=== PATIENT | female | born 1970 | race Caucasian/White ===

== ENCOUNTER → 2017-08-15 | Outpatient (CLI) | payer OTHER ==
[~2017-08-15] MED LIST: CETI10TA24 PO; CITA20TA9 PO; MULT-224 PO
== END ==
LOC: CFH 14:38
PROVIDERS: ATTEND Family Medicine
DX: N60.02 Solitary cyst of left breast (principal); R92.2 Inconclusive mammogram
CPT/HCPCS: 76642; 77066

== ENCOUNTER 2019-02-26 09:31 | Outpatient (CLI) | payer OTHER ==
[~2019-02-26 09:31] MED LIST changes: -MULT-224 PO; +MULT-642 PO
== END 2019-02-26 23:59 | disposition home or self-care (01) ==
LOC: CARD 09:31
PROVIDERS: ATTEND Family Medicine
DX: I49.3 Ventricular premature depolarization (principal)
CPT/HCPCS: 93225; 93226

== ENCOUNTER 2020-04-21 10:09 | Outpatient (CLI) | payer OTHER ==
[~2020-04-21 10:09] MED LIST changes: -CETI10TA24 PO; +CETI10TA76 PO
== END 2020-04-21 23:59 | disposition home or self-care (01) ==
LOC: CFH 10:09
PROVIDERS: ATTEND Family Medicine
DX: Z12.31 Encounter for screening mammogram for malignant neoplasm of breast (principal)
CPT/HCPCS: 77063; 77067